=== PATIENT | female | born 1955 | race Caucasian/White ===

== ENCOUNTER → 2017-01-03 | Outpatient (CLI) | payer BC ==
[2017-01-03 11:44] LABS: Anion Gap 9 mmol/L; Blood Urea Nitrogen 13 mg/dL (7-17); Carbon Dioxide 28 mmol/L (22-30); Chloride 102 mmol/L (98-107); Cholesterol 179 mg/dL (<200); HDL Cholesterol 52 mg/dL (40-60); Non-African American GFR(MDRD) >60 (>60 ml/min/1.73 sqM); Potassium 4.6 mmol/L (3.5-5.1); Sodium 139 mmol/L (137-145); Triglycerides 125 mg/dL (<150)
== END | disposition home or self-care (01) ==
LOC: LABWHC1 10:43
PROVIDERS: ATTEND Internal Medicine Cardiovascular Disease
DX: E78.00 Pure hypercholesterolemia, unspecified (principal); I10 Essential (primary) hypertension
CPT/HCPCS: 36415; 80051; 80061; 82565; 84520

== ENCOUNTER 2021-01-18 09:29 | Day surgery (SDC) | payer BC, MEDICARE ==
[2021-01-17 09:46] VITALS: BMI 48.3
[~2021-01-18 09:29] MED LIST: LACTATED RINGERS 1,000 ML IV SCH; LIDOCAINE 1% (10MG/ML) FOR IV START INTRADERMA PRN
[2021-01-18 10:08] VITALS: RESP 16; TEMP 97.7
[2021-01-18] MEDS ORDERED: LIDOCAINE 1% INJ 10MG/ML (20 ML MDV) ONE (10:21)
[2021-01-18] MEDS ORDERED: PROPOFOL 10 MG/ML 20 ML VIAL IV ONE (10:21)
--- NOTE | 2021-01-18 10:56 | P.PCN ---
Date of Procedure: 01/18/21 Procedure(s) Performed: Brief history: Patient is a 65-year-old pleasant white female scheduled for an elective upper endoscopy as well as colonoscopy as a part of evaluation of evaluation of GERD and prior history of colon polyps Procedure performed: Esophagogastroduodenoscopy Colonoscopy and snare polypectomy Preoperative diagnosis: GERD History of colon polyps Anesthesia: [facility] [place] Procedure: After informed consent was obtained from the patient was brought into the endoscopy unit and IV sedation was administered by anesthesia under continuous monitoring. Initially upper endoscopy was done. The Olympus GF 160 video endoscope was inserted inserted into the mouth and esophagus intubated without any difficulty and was gradually advanced into the stomach the gastric pouch appeared normal. Evidence of gastric bypass surgery with Karla-en-Y anastomosis noted. The anastomosis appeared normal. The scope was advanced into the duodenum that appeared normal. The scope was then withdrawn into the esophagus. The GE junction was located at 37 cm to the incisors. It appeared regular with no erythema erosions or ulcerations. Rest of the esophagus appeared normal. Patient tolerated the procedure well. At this time the patient continued to remain sedation. Initial digital rectal examination was normal. Olympus CF 160 video colonoscope was then inserted into the rectum and gradually advanced to the cecum without any difficulty. Careful examination was performed as the scope was gradually being withdrawn. The prep was excellent. In the base of the cecum there was a 7 mm polyp removed by snare polypectomy. In the ascending colon there was a 2 similar broad-based polyp removed by snare polyp rectum he. Rest of the, ascending colon, transverse colon, descending colon, appeared normal. In the proximal; at 37 mm from the anal verge there was a 2.5 and admitted pedunculated polyp that was removed by snare polypectomy. In the distal sigmoid colon at 30 cm from anal was there was a 5 mm polyp removed by snare polypectomy. Moderate sigmoid diverticulosis seen. Rest of the sigmoid colon and rectum appeared normal. Retroflexion was performed in the rectum and no lesions were noted. Patient tolerated the procedure well. Impression: 1. Upper endoscopy revealed small hiatal hernia, evidence of gastric bypass surgery with normal Karla-en-Y anastomosis 2. Colonoscopy revealed) 5 mm a) 7 mm sessile cecal polyp status post snare polypectomy b) 2 cm broad-based ascending colon polyp status post-polypectomy c) 2.5 cm pedunculated sigmoid colon polyp status post-polypectomy d) 2 mm distal sigmoid: Polyp status post polypectomy e) sigmoid diverticulosis Recommendations: Findings of this examination were discussed with the patient as well as her family. She was advised to follow with the biopsyResults. If the biopsy was adenoma she can have a repeat colonoscopy in 3 years
[2021-01-18 11:09] VITALS: BP 112/69; PULSE 65
== END 2021-01-18 11:31 | disposition home or self-care (01) ==
LOC: ORWHC2ENDO 09:29
PROVIDERS: ATTEND Internal Medicine Gastroenterology
DX: Z12.11 Encounter for screening for malignant neoplasm of colon (principal); D12.0 Benign neoplasm of cecum; D12.2 Benign neoplasm of ascending colon; D17.79 Benign lipomatous neoplasm of other sites; Z98.84 Bariatric surgery status; K57.30 Diverticulosis of large intestine without perforation or abscess without bleeding; K44.9 Diaphragmatic hernia without obstruction or gangrene; Z86.010 Personal history of colon polyps; K21.9 Gastro-esophageal reflux disease without esophagitis; I10 Essential (primary) hypertension; E78.5 Hyperlipidemia, unspecified; I25.2 Old myocardial infarction; J44.9 Chronic obstructive pulmonary disease, unspecified; F17.210 Nicotine dependence, cigarettes, uncomplicated; F41.9 Anxiety disorder, unspecified; Z79.51 Long term (current) use of inhaled steroids; Z79.899 Other long term (current) drug therapy; Z90.710 Acquired absence of both cervix and uterus; Z88.5 Allergy status to narcotic agent
CPT/HCPCS: 88305; 45385; 43235; J2001; J2704

== ENCOUNTER → 2021-02-13 | Outpatient (CLI) | payer MEDICARE ==
[2021-02-13 19:13] LABS: Albumin/Globulin Ratio 1.74 (1.60-3.17); Bilirubin, Conjugated 0.2 mg/dL (0.20-0.40); Bilirubin,Unconjugated 0.2 mg/dL; Chol/HDL Ratio 2.27; Globulin 2.3 g/dL (1.6-3.3); LDL Cholesterol,Calculated 77.6 mg/dL (0.0-131.0); Total Bilirubin 0.4 mg/dL (0.2-1.2); Total Protein 6.3 g/dL (6.2-8.2); VLDL Calculation 12.4 mg/dL (5.00-40.00)
== END | disposition home or self-care (01) ==
LOC: LABWHC1 11:52
PROVIDERS: ATTEND Physician Assistant Medical
DX: E78.00 Pure hypercholesterolemia, unspecified (principal)
CPT/HCPCS: 36415; 80061; 80076

== ENCOUNTER → 2022-11-09 | Outpatient (CLI) | payer MEDICARE ==
[2022-11-09 15:09] LABS: HCT 42.1 % (37.2-46.3); HGB 13.5 g/dL (12.0-15.0); MCH 28.8 pg (27.0-32.0); MCHC 32.1 g/dL (32.0-37.0); Mean Platelet Volume 10.4 fL (9.5-12.2); NRBC Per 100 WBC 0 /100 WBCS (0.0-0.0); Platelet Count 196 X 10*3/uL (140-440); RBC 4.68 X 10*6/uL (4.10-5.20); RDW 13.2 % (11.5-14.5); WBC 5.63 X 10*3/uL (4.50-10.00)
[2022-11-09 16:40] LABS: ALT 20 U/L (8-44); AST 20 U/L (13-35); African American GFR (CKD) 98.6 (60.0-200.0); Albumin 4.3 g/dL (3.8-4.9); Albumin/Globulin Ratio 2.03 (1.60-3.17); Alkaline Phosphatase 116 U/L (41-126); Bilirubin, Conjugated <0.20 mg/dL (0.20-0.40); Blood Urea Nitrogen 8.8 mg/dL (9.0-27.0); Carbon Dioxide 26.5 mmol/L (20.0-27.5); Chloride 101 mmol/L (96-109); Chol/HDL Ratio 2.01 Ratio; Globulin 2.1 g/dL (1.6-3.3); Non-African American GFR(CKD) 85.1 (60.0-200.0); Potassium 4.7 mmol/L (3.5-5.5); Sodium 138 mmol/L (135-145); Total Protein 6.5 g/dL (6.2-8.2)
== END | disposition home or self-care (01) ==
LOC: LABWHC1 11:09
PROVIDERS: ATTEND Internal Medicine Cardiovascular Disease
DX: E78.00 Pure hypercholesterolemia, unspecified (principal); I10 Essential (primary) hypertension; E66.3 Overweight; I25.10 Atherosclerotic heart disease of native coronary artery without angina pectoris
CPT/HCPCS: 36415; 80051; 80061; 80076; 82565; 83036; 84520; 85027

== ENCOUNTER 2024-11-18 18:00 | Emergency (ER) | payer MEDICARE ==
[2024-11-18 18:30] VITALS: TEMP 97.4
[2024-11-18] MEDS: SODIUM CHLORIDE 0.9% 1,000 ML IV STA (18:55)
--- NOTE | 2024-11-18 19:16 | ED ---
General Adult HPI - General Chief complaint: Shortness of Breath Stated complaint: light headed sweating Time Seen by Provider: 11/18/24 18:36 Source: patient Mode of arrival: ambulatory Limitations: no limitations - History of Present Illness Initial comments: Dictation was produced using [employer] dictation software. please excuse any grammatical, word or spelling errors. Chief Complaint: 69-year-old female presents to the emergency department for epi sode of weakness and flushing History of Present Illness: Patient 69-year-old female history present illness obtained from patient along with at the bedside they were getting ready to go and visit a friend all of a sudden she started to have what was described as a flushing and diaphoretic episode. Was complaining of shortness of breath. Since being in the ER her symptoms mostly resolved 6 she feels slightly weak. The ROS documented in this emergency department record has been reviewed and confirmed by me. Those systems with pertinent positive or negative responses have been documented in the HPI. All other systems are other negative and/or noncontributory. - Related Data Home Medications Medication Instructions Recorded Confirmed Aspirin 81 mg PO HS 04/13/14 08/13/24 Montelukast [Singulair] 10 mg PO HS 04/13/14 08/13/24 Fluticasone Propionate 2 spr EA NOSTRIL BID PRN 12/13/14 08/13/24 [Fluticasone Propionate Nasal [place]] Budesonide-Formot 160-4.5 Mcg 2 puff INHALATION RT-BID PRN 01/17/21 08/13/24 [Symbicort 160-4.5 Mcg Inhaler] Escitalopram [Lexapro] 20 mg PO DAILY 01/17/21 08/13/24 Metoprolol Succinate (ER) [Toprol 25 mg PO HS 01/17/21 08/13/24 XL] Omeprazole 40 mg PO DAILY 08/13/24 08/13/24 Tiotropium 2.5 Mcg/Puff [Spiriva 1 puff INHALATION RT-BID PRN 08/13/24 08/13/24 Respimat 2.5 Mcg] Previous Rx's Medication Instructions Recorded Atorvastatin [Lipitor] 20 mg PO HS #0 08/17/24 Dapagliflozin Propanediol [Farxiga] 10 mg PO DAILY #60 tab 08/17/24 Furosemide [Lasix] 40 mg PO DAILY #60 tab 08/17/24 Oseltamivir [Tamiflu] 30 mg PO Q12HR #3 cap 08/17/24 Sacubitril/Valsartan [Entresto 24 1 each PO BID #120 tab 08/17/24 mg-26 mg Tablet] Ticagrelor [Brilinta] 90 mg PO BID #120 tab 08/17/24 predniSONE [Deltasone] See Taper PO DAILY #30 tab 08/17/24 Allergies Allergy/AdvReac Type Severity Reaction Status Date / Time codeine Allergy Nausea & Verified 11/18/24 18:27 Vomiting morphine Allergy Nausea & Verified 11/18/24 18:27 Vomiting lactulose AdvReac Nausea & Verified 11/18/24 18:27 Vomiting & Diarrhea Review of Systems ROS Statement: Those systems with pertinent positive or pertinent negative responses have been documented in the HPI. ROS Other: All systems not noted in ROS Statement are negative. Past Medical History Past Medical History: Cancer, Heart Failure, COPD, GERD/Reflux, Hyperlipidemia, Hypertension, Myocardial Infarction (CA), Osteoarthritis (OA), Sleep Apnea/CPAP/BIPAP Additional Past Medical History / Comment(s): "burping and abdominal pain", splastic bladder, hx skin cancer Last Myocardial Infarction Date:: 07/30/2013 History of Any Multi-Drug Resistant Organisms: None Reported Past Surgical History: Appendectomy, Bariatric Surgery, Heart Catheterization With Stent, Hysterectomy, Orthopedic Surgery, Tonsillectomy Additional Past Surgical History / Comment(s): bone spurs removed from feet, ca ncer removed from leg, D&C's, gastric bypass, rt & left knee arthroscopy, one cardiac stent Past Anesthesia/Blood Transfusion Reactions: Postoperative Nausea & Vomiting (PONV) Additional Past Anesthesia/Blood Transfusion Reaction / Comment(s): "i wake up during procedures" Date of Last Stent Placement:: 07/30/2013 Past Psychological History: Anxiety, Panic Disorder Smoking Status: Former smoker Past Alcohol Use History: None Reported Past Drug Use History: None Reported - Past Family History Mother Family Medical History: No Reported History General Exam - General Exam Comments Initial Comments: PHYSICAL EXAM: General Impression: Alert and oriented x3, not in acute distress HEENT: Normocephalic atraumatic, extra-ocular movements intact, pupils equal and reactive to light bilaterally, mucous membranes moist. Cardiovascular: Heart regular rate and rhythm Chest: Able to complete full sentences, no retractions, no tachypnea Abdomen: abdomen soft, non-tender, non-distended, no organomegaly Musculoskeletal: Pulses present and equal in all extremities, no peripheral edema Motor: no focal deficits noted Neurological: CN II-XII grossly intact, no focal motor or sensory deficits noted Skin: Intact with no visualized rashes Psych: Normal affect and mood Limitations: no limitations Course Vital Signs 11/18/24 18:24 Temperature 97.4 F L Pulse Rate 67 Respiratory 22 Rate Blood Pressure 129/54 O2 Sat by Pulse 97 Oximetry EKG Findings - EKG Comments: EKG Findings:: My EKG interpretation: Ventricular rate 65, sinus rhythm,. Norm al 209, QRS 116, QTc 464. No NH prolongation, no QTC prolongation, no ST or T- wave changes noted. Overall, this EKG is unremarkable Medical Decision Making - Medical Decision Making Was pt. sent in by a medical professional or institution (, PA, SALES REPRESENTATIVE EDUCATION COURSES, urgent care, hospital, or [facility]...) When possible be specific @ -No Did you speak to anyone other than the patient for history (EMS, parent, family, police, friend...)? What history was obtained from this source @ -No Did you review nursing and triage notes (agree or disagree)? Why? @ -I reviewed and agree with nursing and triage notes Were old charts reviewed (outside hosp., previous admission, EMS record, old EKG, old radiological studies, urgent care reports/EKG's, [facility] records)? Report findings @ -No old charts were reviewed Differential Diagnosis (chest pain, altered mental status, abdominal pain women, abdominal pain men, vaginal bleeding, musculoskeletal, weakness, fever, dyspnea, syncope, headache, dizziness, GI bleed, back pain, seizure, CVA, palpatations, mental health)? @ -Differential Dizziness: Benign paroxysmal positional Vertigo, Meniere's disease, otitis media, acoustic neuroma, vertebrobasilar insufficiency, cerebellar stroke, encephalitis, hypovolemic, arrhythmia, coronary artery syndrome, anemia, this is not meant to be an all-inclusive list EKG interpreted by me (3pts min.). @ -See above X-rays interpreted by me (1pt min.). @ -None done CT interpreted by me (1pt min.). @ -None done U/S interpreted by me (1pt. min.). @ -None done What testing was considered but not performed or refused? (CT, X-rays, U/S, labs)? Why? @ -None What meds were considered but not given or refused? Why? @ -None Was smoking cessation discussed for >3mins.? @ -No Were there social determinants of health that impacted care today? How? (Homelessness, low income, unemployed, alcoholism, drug addiction, transportation, low edu. Level, literacy, decrease access to med. care, residential, rehab)? @ -No Was there de-escalation of care discussed even if they declined (Discuss DNR or withdrawal of care, Hospice)? DNR status @ -No What co-morbidities impacted this encounter? (DM, HTN, Smoking, COPD, CAD, Cancer, CVA, ARF, Chemo, Hep., AIDS, mental health diagnosis, sleep apnea, morbid obesity)? @ -None Was patient admitted / discharged? Hospital course, mention meds given and route, prescriptions, significant lab abnormalities, going to OR and other pertinent info. @ -69-year-old female presents to the emergency department after episode of fl ushing diaphoresis and nausea. She did not experience any pain complaints or shortness of breath with it. Vital signs stable. Patient upon arrival reports complete resolution of symptoms. Evaluation obtained. No acute processes noted. Patient observed in the emergency department for approximately 2 hours. Reevaluated bedside at 8:20 PM found to be stable to condition. Patient discharged advised follow-up with primary care doctor. Did you discuss the management of the patient with other professionals (professionals i.e. , PA, SALES REPRESENTATIVE [employer]UC[employer]RSES, lab, RT, psych nurse, addiction social worker, retail and restaurant, teacher, protection officer, ed case manager)? Give summary @ -No Was critical care preformed (if so, how long)? @ -No Undiagnosed new problem with uncertain prognosis? @ -No Drug Therapy requiring intensive monitoring for toxicity (Heparin, Nitro, Insulin, Cardizem)? @ -No Were any procedures done? @ -No Diagnosis/symptom? Acute, or Chronic, or Acute on Chronic? Uncomplicated (without systemic symptoms) or Complicated (systemic symptoms)? @ -Flushing episode Side effects of treatment? @ -No Exacerbation, Progression, or Severe Exacerbation? @ -No Poses a threat to life or bodily function? How? (Chest pain, USA, CA, pneumonia, PE, COPD, DKA, ARF, appy, cholecystitis, CVA, Diverticulitis, Homicidal, Suicidal, threat to staff... and all critical care pts) @ -No - Lab Data Result diagrams: 11/18/24 19:25 11/18/24 19:25 Lab Results 11/18/24 11/18/24 Range/Units 19: 19:25 WBC 7.07 (4.50-10.00) 10*3/uL RBC 4.41 (4.10-5.20) 10*6/uL Hgb 12.1 (12.0-15.0) g/dL Hct 36.8 L (37.2-46.3) % MCV 83.4 (80.0-97.0) fL MCH 27.4 (27.0-32.0) pg MCHC 32.9 (32.0-37.0) g/dL Plt Count 179 (140-440) 10*3/uL MPV 10.9 (9.5-12.2) fL Immature Gran % (Auto) 0.6 % Neutrophils % 78.4 % Lymphocytes % 10.5 % Monocytes % 8.3 % Eosinophils % 1.6 % Basophils % 0.6 % Immature Gran # 0.04 (0.00-0.04) 10*3/uL Neutrophils # 5.55 (1.80-7.70) 10*3/uL Lymphocytes # 0.74 L (0.90-5.00) 10*3/uL Monocytes # 0.59 (0.20-1.00) 10*3/uL Eosinophils # 0.11 (0.04-0.35) 10*3/uL Basophils # 0.04 (0.00-0.10) 10*3/uL Sodium 136 L (137-145) mmol/L Potassium 3.8 (3.5-5.1) mmol/L Chloride 101 (98-107) mmol/L Carbon Dioxide 24 (22-30) mmol/L Anion Gap 11 mmol/L BUN 14 (7-17) mg/dL Creatinine 0.73 (0.52-1.04) mg/dL Est GFR (CKD-EPI)AfAm >90 (>60 ml/min/1.73 sqM) Est GFR (CKD-EPI)NonAf 85 (>60 ml/min/1.73 sqM) Glucose 88 (74-99) mg/dL Calcium 9.4 (8.4-10.2) mg/dL Total Bilirubin 0.4 (0.2-1.3) mg/dL AST 22 (14-36) U/L ALT 18 (4-34) U/L Alkaline Phosphatase 87 (38-126) U/L Total Protein 6.4 (6.3-8.2) g/dL Albumin 3.9 (3.5-5.0) g/dL Disposition Clinical Impression: Dizziness Disposition: HOME SELF-CARE Condition: Good Instructions (If sedation given, give patient instructions): Lightheadedness (ED) Is patient prescribed a controlled substance at d/c from ED?: No Referrals: Kelli Sanchez MD [Primary Care Provider] - 1-2 days Time of Disposition: 20:21
[2024-11-18 19:35] LABS: Basophils # (A) 0.04 10*3/uL (0.00-0.10); Basophils % (A) 0.6 %; Eosinophils # (A) 0.11 10*3/uL (0.04-0.35); Eosinophils % (A) 1.6 %; HCT 36.8 % (37.2-46.3); HGB 12.1 g/dL (12.0-15.0); Lymphocytes # (A) 0.74 10*3/uL (0.90-5.00); Lymphocytes % (A) 10.5 %; MCH 27.4 pg (27.0-32.0); MCHC 32.9 g/dL (32.0-37.0); MCV 83.4 fL (80.0-97.0); Mean Platelet Volume 10.9 fL (9.5-12.2); Monocytes # (A) 0.59 10*3/uL (0.20-1.00); Monocytes % (A) 8.3 %; Neutrophils # (A) 5.55 10*3/uL (1.80-7.70); Neutrophils % (A) 78.4 %; Platelet Count 179 10*3/uL (140-440); RBC 4.41 10*6/uL (4.10-5.20); RDW 13.3 % (11.5-14.5); WBC 7.07 10*3/uL (4.50-10.00)
[2024-11-18 19:47] LABS: ALT 18 U/L (4-34); AST 22 U/L (14-36); African American GFR (CKD) >90 (>60 ml/min/1.73 sqM); Albumin 3.9 g/dL (3.5-5.0); Alkaline Phosphatase 87 U/L (38-126); Anion Gap 11 mmol/L; Blood Urea Nitrogen 14 mg/dL (7-17); Calcium 9.4 mg/dL (8.4-10.2); Carbon Dioxide 24 mmol/L (22-30); Chloride 101 mmol/L (98-107); Glucose 88 mg/dL (74-99); Non-African American GFR(CKD) 85 (>60 ml/min/1.73 sqM); Potassium 3.8 mmol/L (3.5-5.1); Sodium 136 mmol/L (137-145); Total Bilirubin 0.4 mg/dL (0.2-1.3); Total Protein 6.4 g/dL (6.3-8.2)
[2024-11-18 20:40] VITALS: BP 130/74; PULSE 71; RESP 18
== END 2024-11-18 20:40 | disposition home or self-care (01) ==
LOC: EC 18:00
DX: R42 Dizziness and giddiness (principal); Z87.891 Personal history of nicotine dependence; Z88.5 Allergy status to narcotic agent; Z88.8 Allergy status to other drugs, medicaments and biological substances
CPT/HCPCS: 36415; 80053; 85025; 93005; 96360; 96361; 99285